=== PATIENT | female | born 1970 | race Caucasian/White ===

== ENCOUNTER → 2023-12-29 13:50 | Outpatient (REF) | payer BC, SELFPAY | LOC: DHCBS MAIN 13:50 | PROVIDERS: ATTENDING PHYSICIAN Nuclear Medicine Nuclear Cardiology; FAMILY PHYSICIAN Student in an Organized Health Care Education/Training Program | DX: R55 Syncope and collapse (principal); R07.9 Chest pain, unspecified; R42 Dizziness and giddiness; R94.31 Abnormal electrocardiogram [ECG] [EKG]; Z87.891 Personal history of nicotine dependence | CPT/HCPCS: 93306 ==

== ENCOUNTER 2025-02-19 06:20 | Day surgery (SDC) | payer BC, SELFPAY | END 2025-02-19 11:24 | disposition home or self-care (01) | LOC: GI 06:20 | PROVIDERS: ATTENDING PHYSICIAN Internal Medicine Gastroenterology | DX: Z12.11 Encounter for screening for malignant neoplasm of colon (principal); R19.5 Other fecal abnormalities; K64.8 Other hemorrhoids; D12.2 Benign neoplasm of ascending colon; D12.8 Benign neoplasm of rectum | CPT/HCPCS: 45385; 45380; 88305 ==

== ENCOUNTER 2025-04-03 06:26 | Day surgery (SDC) | payer OTHER, SELFPAY ==
[2025-04-03 09:53] VITALS: BMI 23.1
[2025-04-03 09:54] VITALS: BP 132/80; BMI 23.1
[2025-04-03 14:02] VITALS: BP 105/81
[2025-04-03 14:15] VITALS: BP 113/80
[2025-04-03 14:19] VITALS: BP 117/80
== END 2025-04-03 14:33 | disposition home or self-care (01) ==
LOC: SDS 06:26
PROVIDERS: ATTENDING PHYSICIAN Internal Medicine Gastroenterology; FAMILY PHYSICIAN Student in an Organized Health Care Education/Training Program
DX: D12.2 Benign neoplasm of ascending colon (principal); K64.1 Second degree hemorrhoids
CPT/HCPCS: 45390; 88305